=== PATIENT | female | born 1960 | race African-American/Black ===

== ENCOUNTER → 2017-01-21 | Outpatient (CLI) | payer BC ==
[2014-03-09 17:46] VITALS: BP 160/77
[~2017-01-21] MED LIST: BENA1TAB6 PO; IOHEXOL 300 MG/ML 100ML VIAL. IV ONE
--- NOTE | 2017-01-21 11:55 | KCIC ---
Indication: Claudication, smoker, short of breath. Technique: Axial images and coronal and sagittal maximum intensity projection reformatted images are provided. 90 mL of intravenous Omnipaque 300 was administered without complication. No comparison is available. One or more of the following individualized dose reduction techniques were utilized for this examination: 1. Automated exposure control 2. Adjustment of the mA and/or kV according to patient size 3. Use of iterative reconstruction technique Findings: The contrast bolus is satisfactory. There is no filling defect to suggest pulmonary embolism. There is no aortic aneurysm or dissection. There is minimal atheromatous disease in the thoracic aorta. The heart is not enlarged. There is no hilar or mediastinal adenopathy. Central airways are patent. There is no pleural effusion. 2 mm pulmonary nodule is noted in the right upper lobe on image 34. 2 mm nodule which may be calcified in the right upper lobe on image 59 is noted. Small cyst or bulla in the right lower lobe is noted. Left lower lobe nodules abutting the pleura measuring 2 mm are noted on images 128 and 107. Thyroid appears enlarged, may have some nodules up to a centimeter in size with calcification in the right thyroid lobe. There is fatty infiltration of the liver. There are degenerative changes in the spine. IMPRESSION: 1. Negative for pulmonary embolism. 2. Pulmonary nodules. Per Fleischner Society, no further workup is required in a low-risk patient, 12 month follow-up can be considered in a high-risk patient. 3. Apparent thyromegaly with possible nodules up to a centimeter in size. Electronically signed by: Romario Novoa MD (01/21/2017 11:52 AM) [id number]
== END | disposition home or self-care (01) ==
LOC: KCIC CT 10:49
PROVIDERS: ATTEND Family Medicine
DX: I73.9 Peripheral vascular disease, unspecified (principal); R91.1 Solitary pulmonary nodule; K76.0 Fatty (change of) liver, not elsewhere classified; R06.02 Shortness of breath; F17.200 Nicotine dependence, unspecified, uncomplicated
CPT/HCPCS: 71275; Q9967